=== PATIENT | female | born 1955 | race Caucasian/White ===

== ENCOUNTER 2017-07-05 04:27 | Observation (INO) ==
[2017-07-05] MEDS ORDERED: Aspirin 81 MG TAB.CHEW PO ONE (04:36)
[2017-07-05] MEDS: Nitroglycerin 0.4 MG TAB.SUBL SL ONE ×2 (04:41→05:04)
--- NOTE | 2017-07-05 04:42 | Emergency Department Note ---
Disposition Clinical Impression: Chest pain Qualifiers: Chest pain type: unspecified Qualified Code(s): R07.9 - Chest pain, unspecified Disposition: Admitted As Inpatient Condition: Good Referrals: Sarah Deng CNP [Primary Care Provider] - Forms: ED Satisfaction Letter Chest Pain HPI - General Chief Complaint: ED Chest Pain Stated Complaint: chest pain Time Seen by Provider: 07/05/17 04:36 Source: patient Mode of arrival: ambulatory Limitations: no limitations Vital Signs Reviewed: Yes Nursing Notes Reviewed: Yes - History of Present Illness HPI Narrative: Patient presents today for evaluation of chest pain pain in shoulder pain is worse with inspiration. Patient states that she has not had any symptoms until she awoke. She initially thought it might be gas. Patient's symptoms have progressed. Patient describes chest pain as sharp and worse with certain movements as well as deep breaths. Patient denies any trauma. Patient did have knee surgery in February has had intermittent associated issues with swelling in her legs. Patient is not on any anticoagulation. Severity scale (1-10): 5 - Related Data Allergies Allergy/AdvReac Type Severity Reaction Status Date / Time sumatriptan AdvReac Chest Pain Verified 07/05/17 04:38 Review of Systems: CONSTITUTIONAL: No weight loss, fever, chills, weakness or fatigue. HEENT: Eyes: No visual changes. Ears, Nose, Throat: No hearing loss, difficulty talking or unable to swallow. SKIN: No rash or itching. CARDIOVASCULAR: Chest pain with radiation to the neck and shoulder. RESPIRATORY: Shortness of breath without cough or sputum production GASTROINTESTINAL: No anorexia, nausea, vomiting or diarrhea. No abdominal pain or blood. GENITOURINARY: No burning on urination or hematuria. NEUROLOGICAL: No headache, dizziness, syncope, paralysis, ataxia, numbness or tingling in the extremities. No change in bowel or bladder control. MUSCULOSKELETAL: No muscle pain, back pain, joint pain or stiffness. Chest Pain PMH - Past Medical History Medical history: Reports: hypertension Surgical history: Reports: cholecystectomy, MALDONADO/BSO, other (Tonsillectomy; foot surgery) Psychiatric history: Reports: depression - Social History Smoking Status: Unknown if ever smoked Alcohol use: Reports: none Drug use: Reports: none Physical Exam General: Cachectic with short splinted breaths Head: Normocephalic Atraumatic Eyes: PERRL, EOMI ENT: Airway patent, no stridor Neck: supple, no meningismus Chest: Lungs clear to auscultation bilateral Cardiac: Regular rate and rhythm, no murmurs, rubs or gallops Abdomen: soft, nontender, nondistended; no guarding, rebound, or tenderness to percussion Musculoskeletal: Calves symmetric, nontender, no palpable cord Skin: No rash, normal skin tone Neuro: Alert and Oriented to person, place, and time; No focal deficit, CN 2-12 symmetric and intact - General General appearance: alert, in no apparent distress Course Course Narrative: Patient's d-dimer elevated. CTA negative. Patient's pain was worse with movement but was also improved with nitroglycerin. There has only been 3 hours of pain. Patient will need repeat troponins and further observation. Patient be admitted to the hospital service for further evaluation. - Consultations Consultation #1: Discussed with hospitalist. Patient accepted for admission. Vital Signs Temperature 98.1 F 07/05/17 04:28 Pulse Rate 96 07/05/17 04:28 Respiratory Rate 30 07/05/17 04:28 Blood Pressure 139/84 07/05/17 04:28 O2 Sat by Pulse Oximetry 96 07/05/17 04:28 Temperature 98.1 F 07/05/17 04:28 Pulse Rate 82 07/05/17 06:35 Respiratory Rate 18 07/05/17 06:35 Blood Pressure 141/83 07/05/17 06:35 O2 Sat by Pulse Oximetry 97 07/05/17 06:35 Oxygen Delivery Oxygen Delivery Nasal Cannula Chest Pain - Medical Records Medical records reviewed: Yes I reviewed the patient's medical records. - Lab Data Lab results reviewed: Yes I reviewed the patient's lab results. Result diagrams: 07/05/17 04:39 07/05/17 04:39 Lab Results 07/05/17 07/05/17 07/05/17 Range/Units 04:39 04:39 04:39 WBC 6.2 (4.3-11.1) K/mcL RBC 4.28 (3.82-4.97) M/mcL Hgb 13.2 (11.5-15.4) g/dL Hct 40.2 (35.3-44.9) % MCV 93.9 (83.0-100.0) fL MCH 30.8 (28.0-33.3) pg MCHC 32.8 (31.6-35.5) g/dL RDW 12.9 (11.5-14.5) % Plt Count 316 (140-400) K/mcL MPV 9.8 (9.4-12.4) fL Immature Gran % 0.2 (0-4) % Seg Neutrophils % 47.2 % Lymphocytes % 39.8 % Monocytes % 9.1 % Eosinophils % 3.2 % Basophils % 0.5 % Neutrophils # 2.9 (1.6-8.9) K/mcL Lymphocytes # 2.5 (0.6-4.6) K/mcL Monocytes # 0.6 (0.0-1.3) K/mcL Eosinophils # 0.2 (0.0-0.6) K/mcL Basophils # 0.0 (0.0-0.2) K/mcL Nucleated RBCs/100 WBC 0.5 H (0) /100 WBC PT 9.0 L (9.4-12.1) Seconds INR 0.8 APTT 29.1 (26.0-36.0) Seconds D-Dimer 905 H (0-500) ng/mLFEU Sodium (136-145) mEq/L Potassium (3.5-5.1) mEq/L Chloride (98-107) mEq/L Carbon Dioxide (23-29) mEq/L BUN (8-23) mg/dL Creatinine (0.60-1.20) mg/dL Est GFR ( Amer) (> 60) Est GFR (Non-Af Amer) (> 60) BUN/Creatinine Ratio (6-26) Glucose (70-105) mg/dL Calculated Osmolality (280-300) Calcium (8.6-10.3) mg/dL Troponin I (< 0.04) ng/mL B-Natriuretic Peptide 28 (Less than 100) pg/mL 07/05/17 Range/Units 04:39 WBC (4.3-11.1) K/mcL RBC (3.82-4.97) M/mcL Hgb (11.5-15.4) g/dL Hct (35.3-44.9) % MCV (83.0-100.0) fL MCH (28.0-33.3) pg MCHC (31.6-35.5) g/dL RDW (11.5-14.5) % Plt Count (140-400) K/mcL MPV (9.4-12.4) fL Immature Gran % (0-4) % Seg Neutrophils % % Lymphocytes % % Monocytes % % Eosinophils % % Basophils % % Neutrophils # (1.6-8.9) K/mcL Lymphocytes # (0.6-4.6) K/mcL Monocytes # (0.0-1.3) K/mcL Eosinophils # (0.0-0.6) K/mcL Basophils # (0.0-0.2) K/mcL Nucleated RBCs/100 WBC (0) /100 WBC PT (9.4-12.1) Seconds INR APTT (26.0-36.0) Seconds D-Dimer (0-500) ng/mLFEU Sodium 139 (136-145) mEq/L Potassium 4.2 (3.5-5.1) mEq/L Chloride 105 (98-107) mEq/L Carbon Dioxide 24 (23-29) mEq/L BUN 16 (8-23) mg/dL Creatinine 0.94 (0.60-1.20) mg/dL Est GFR ( Amer) > 60 (> 60) Est GFR (Non-Af Amer) > 60 (> 60) BUN/Creatinine Ratio 17 (6-26) Glucose 120 H (70-105) mg/dL Calculated Osmolality 290 (280-300) Calcium 9.1 (8.6-10.3) mg/dL Troponin I < 0.03 (< 0.04) ng/mL B-Natriuretic Peptide (Less than 100) pg/mL - Radiology Data Radiology results reviewed: Yes I reviewed the patient's radiology results. - EKG Data EKG attestation: Yes I reviewed and interpreted this EKG. EKG results narrative: EKG shows sinus rhythm with ventricular rate of 90. AK 152. QRS 82. QTC 391. Patient has no significant ST elevations or depressions. No previous EKG for comparison.
[2017-07-05] MEDS ORDERED: *HR* Morphine 2 MG/ML SYRINGE IVP ONE (04:46)
[2017-07-05] MEDS ORDERED: Ondansetron 4 MG/2 ML VIAL IVP ONE (04:46)
[2017-07-05 04:47] LABS: Basophils % 0.5 %; Eosinophils # 0.2 K/mcL (0.0-0.6); Eosinophils % 3.2 %; Hematocrit 40.2 % (35.3-44.9); Hemoglobin 13.2 g/dL (11.5-15.4); Immature Granulocytes % 0.2 % (0-4); Lymphocytes # 2.5 K/mcL (0.6-4.6); Lymphocytes % 39.8 %; Mean Corpuscular HGB Conc 32.8 g/dL (31.6-35.5); Mean Corpuscular Hemoglobin 30.8 pg (28.0-33.3); Mean Corpuscular Volume 93.9 fL (83.0-100.0); Mean Platelet Volume 9.8 fL (9.4-12.4); Monocytes # 0.6 K/mcL (0.0-1.3); Monocytes % 9.1 %; Neutrophils # 2.9 K/mcL (1.6-8.9); Nucleated Red Blood Cells 0.5 /100 WBC (0); Platelet Count 316 K/mcL (140-400); Red Blood Count 4.28 M/mcL (3.82-4.97); Red Cell Distribution Width 12.9 % (11.5-14.5); Segmented Neutrophils % 47.2 %
[2017-07-05 04:57] LABS: INR 0.8
[2017-07-05 05:00] LABS: Activated Partial Thrombo Time 29.1 Seconds (26.0-36.0)
[2017-07-05 05:15] LABS: BUN/Creatinine Ratio 17 (6-26); Blood Urea Nitrogen 16 mg/dL (8-23); Calcium 9.1 mg/dL (8.6-10.3); Carbon Dioxide 24 mEq/L (23-29); Chloride 105 mEq/L (98-107); Glucose 120 mg/dL (70-105); Osmolality,Calculated 290 (280-300); Potassium 4.2 mEq/L (3.5-5.1); Sodium 139 mEq/L (136-145); Troponin I < 0.03 ng/mL (< 0.04); eGFR For African Americans > 60 (> 60); eGFR For Non-African Americans > 60 (> 60)
[2017-07-05] MEDS ORDERED: Isovue-370 500 ML INFUS..BTL IV ONE (05:28)
--- NOTE | 2017-07-05 08:21 | Internal Med History&Physical ---
Date of Encounter: 07/05/17 Time of Encounter: 08:00 Internal Medicine - H&P: HPI Chief complaint: Chest pain Admitted From: Home History of present illness: Patient is a 61-year-old female with past medical history significant for hypertension, mood disorder and GERD who presents to the ER on 07/05/17 due to chest pain. Patient reports that she was awakened this morning with left-sided chest and shoulder pain which she describes as sharp. Patient reports that the discomfort is constant, made worse with deep inspiration and movement and better when she lies still. Patient denies any associated symptoms of shortness of breath, nausea/vomiting or diaphoresis. Patient was concerned and decided to come to the ER for evaluation. In the ER, EKG showed no ST or T-wave changes and first set of cardiac biomarkers are negative. CT of the chest was also negative for PE. Patient will be admitted to medical surgical floor for ACS rule out. Past Med Surg Social Fam HX - Past Medical History Medical history: hypertension Psychiatric history: depression - Past Surgical History Surgical History: cholecystectomy, MALDONADO/BSO, other - Social History Smoking Status: Never smoker Smokeless Tobacco Status: No Alcohol use: none Drug use: none - Family History Mother Hx Family Cardiac Disorders: Yes (Mother PR ) Internal Medicine - H&P: Meds Duloxetine HCl [Cymbalta] 60 mg PO BID 07/05/17 [History] Metoprolol Succinate [Toprol Xl] 50 mg PO DAILY 07/05/17 [History] Omeprazole [PriLOSEC] 20 mg PO BIDAC 07/05/17 [History] 3 Allergy/AdvReac Type Severity Reaction Status Date / Time sumatriptan AdvReac Chest Pain Verified 07/05/17 04:38 All Systems PM: A 10-system review of systems was performed and is negative for pertinent findings except as documented above in the HPI. - Constitutional Vitals: Temp Pulse Resp BP Pulse Ox 97.8 F 78 17 110/69 96 07/05/17 08:16 07/05/17 08:16 07/05/17 08:16 07/05/17 08:16 07/05/17 08:16 General appearance: Present: A&O X 3, no acute distress - Eye Eye exam: Present: normal appearance, PERRL, conjuntiva pink, sclera anicteric Pupils: Present: PERRL - ENT ENT exam: Present: mucous membranes moist - Respiratory Respiratory exam: Present: CTAB. Absent: accessory muscle use, rales, rhonchi, wheezes - Cardiovascular Cardiovascular exam: Present: RRR, +S1, +S2. Absent: diastolic murmur, gallop, rubs, systolic murmur - GI/Abdominal GI/Abdominal exam: Present: normal bowel sounds, soft, no peritoneal signs. Absent: distended, tenderness - Extremities Exam Extremities exam: Absent: pedal edema - Neurological Exam Neurological exam: Present: oriented X3 - Psychiatric Psychiatric exam: Present: normal mood - Skin Skin exam: Present: normal color Internal Med - H&P Results - Labs CBC & Chem 7: 07/05/17 04:39 07/05/17 04:39 - Assessment and plan (1) Chest pain Current Visit: Yes Status: Acute Assessment and plan: In the ER, EKG showed no ST or T-wave changes and first set of cardiac biomarkers are negative. CT of the chest was also negative for PE Will trend serial cardiac biomarkers, monitor on telemetry and order echocardiogram. Will also order nuclear medicine stress test Will await results before considering cardiology consult Qualifiers: Chest pain type: unspecified Qualified Code(s): R07.9 - Chest pain, unspecified (2) HTN (hypertension) Current Visit: Yes Status: Acute Assessment and plan: Blood pressures controlled; will hold beta ravindra pending degree medicine stress test Qualifiers: Hypertension type: essential hypertension Qualified Code(s): I10 - Essential (primary) hypertension (3) GERD (gastroesophageal reflux disease) Current Visit: Yes Status: Acute Assessment and plan: Continue home dose of PPI Qualifiers: Esophagitis presence: esophagitis presence not specified Qualified Code(s) : K21.9 - Gastro-esophageal reflux disease without esophagitis (4) DVT prophylaxis Current Visit: Yes Status: Acute Assessment and plan: Heparin subcutaneous - Time Spent With Patient Total time spent is greater than 50% in coordination of care (as documented) at patient's floor/unit and/or counseling patient:
[2017-07-05] MEDS ORDERED: Naloxone 0.4 MG/ML INJ IVP PRN (08:32)
[2017-07-05] MEDS ORDERED: Regadenoson 0.4 MG/5 ML SYRINGE IVP ONE (08:59)
[2017-07-05] MEDS: Ketorolac 30 MG/ML VIAL IVP PRN (14:45)
[2017-07-05] MEDS: *HR* Heparin 5,000 UNIT/ML VIAL SQ SCH ×2 (14:46→22:38)
--- NOTE | 2017-07-06 05:31 | Electrocardiograph Report ---
[place] [id number] Test Date: 2017-07-05 Pat Name: Mary Quan Department: 102 Room: 3B43 Gender: F Epic [employer] Analyst: Blaine : 1955 Requested By: [id number] Order Number: [id number] Reading MD: Antonio Neil Measurements Intervals [place] Rate: 90 P: 17 NM: 152 QRS: 8 QRSD: 82 T: 46 QT: 344 QTc: 391 Interpretive Statements SINUS RHYTHM Electronically Signed On 07-06-2017 5:30:09 EDT by Antonio Neil
[2017-07-06] MEDS: *HR* Heparin 5,000 UNIT/ML VIAL SQ SCH ×2 (05:53→13:05)
[2017-07-06 06:39] LABS: Basophils % 0.4 %; Eosinophils # 0.1 K/mcL (0.0-0.6); Eosinophils % 2.5 %; Hematocrit 38.8 % (35.3-44.9); Hemoglobin 12.3 g/dL (11.5-15.4); Immature Granulocytes % 0.2 % (0-4); Lymphocytes # 1.5 K/mcL (0.6-4.6); Lymphocytes % 26.7 %; Mean Corpuscular HGB Conc 31.7 g/dL (31.6-35.5); Mean Corpuscular Hemoglobin 29.6 pg (28.0-33.3); Mean Corpuscular Volume 93.3 fL (83.0-100.0); Monocytes # 0.5 K/mcL (0.0-1.3); Monocytes % 8.4 %; Neutrophils # 3.5 K/mcL (1.6-8.9); Platelet Count 283 K/mcL (140-400); Red Blood Count 4.16 M/mcL (3.82-4.97); Red Cell Distribution Width 12.9 % (11.5-14.5); Segmented Neutrophils % 61.8 %
[2017-07-06 06:54] LABS: BUN/Creatinine Ratio 21 (6-26); Blood Urea Nitrogen 18 mg/dL (8-23); Calcium 9.1 mg/dL (8.6-10.3); Carbon Dioxide 24 mEq/L (23-29); Chloride 103 mEq/L (98-107); Glucose 112 mg/dL (70-105); Osmolality,Calculated 289 (280-300); Potassium 4.4 mEq/L (3.5-5.1); Sodium 138 mEq/L (136-145); eGFR For African Americans > 60 (> 60); eGFR For Non-African Americans > 60 (> 60)
[2017-07-06] MEDS: Ketorolac 30 MG/ML VIAL IVP PRN (10:10)
--- NOTE | 2017-07-06 10:31 | Cardiology Consult Note ---
Date of Encounter: 07/06/17 Time of Encounter: 10:30 Assessment and Plan (1) Abnormal stress test Current Visit: Yes Status: Acute Discussed her symptoms consistent with noncardiac chest pain, most likely pleurisy or musculoskeletal. She walks at home without symptoms. Sxs improved with toradol. No high risk findings on stress test. A/R/B of medical management versus LHC discussed with her including 1% chance of IA//CVA/ CABG/bleeding in the latter. She is agreeable with conservative management which I feel is reasonable as she has BMI 46 with large breast size making it more likely the anterior defect on stress is artifactual. Stable for dc, and fu in clinic. (2) Chest pain Current Visit: Yes Status: Acute agree with nsaid for pleurisy, aspirin 81mg daily Qualifiers: Chest pain type: unspecified Qualified Code(s): R07.9 - Chest pain, unspecified Discussion w patient/family: The assessment and plan as outlined above was discussed with the patient and/or family members who expressed understanding and agreement. All questions were answered. Thank you for involving us in the care of your patient. Please call with any questions. History of Present Illness Consult date: 07/06/17 Consult reason: chest pain Chief complaint: chest pain History of present illness: Ms. Quan is a 61 year old female with no previous cardiac history. She presents with chest pain described as under left breast into left shoulder that is sharp and worse with deep inspiration and moving her upper body and notes worse on palpation as well. It was severe initially and now moderate, improved after toradol given. She denies dyspnea, nausea, diaphoresis or vomiting. Past Med Surg Social Fam HX - Past Medical History Medical history: hypertension Psychiatric history: depression - Past Surgical History Surgical History: cholecystectomy, MALDONADO/BSO, other - Social History Smoking Status: Never smoker Smokeless Tobacco Status: No Alcohol use: none Drug use: none - Family History Mother Hx Family Cardiac Disorders: Yes (IA, pacer) Medications and Allergies Duloxetine HCl [Cymbalta] 60 mg PO BID 07/05/17 [History] Metoprolol Succinate [Toprol Xl] 50 mg PO DAILY 07/05/17 [History] Omeprazole [PriLOSEC] 20 mg PO BIDAC 07/05/17 [History] 3 Allergy/AdvReac Type Severity Reaction Status Date / Time sumatriptan AdvReac Chest Pain Verified 07/05/17 04:38 All Systems Review: The remainder of the systems were reviewed and are negative - Constitutional Constitutional: no chills, no fever(s) - EENT Nose, mouth and throat: no bleeding gums, no epistaxis - Cardiovascular Cardiovascular: chest pain at rest, chest pain with exertion - Respiratory Respiratory: no hemoptysis, no wheezing - Gastrointestinal Gastrointestinal: no hematemesis, no hematochezia - Genitourinary Genitourinary: no hematuria, no nocturia - Musculoskeletal Musculoskeletal: no muscle cramps, no muscle weakness - Integumentary Integumentary: no rash, no unusual bruising - Neurological Neurological: no syncope, no tingling - Psychiatric Psychiatric: no hallucinations, no panic attacks - Hematological/Lymphatic Hematologic/Lymphatic: no easy bleeding, no easy bruising Physical Examination Vital Signs, Last 4 Hours Temp Pulse Resp BP Pulse Ox 07/06/17 08:20 92 07/06/17 07:10 98.6 F 80 16 119/78 92 General: Conversant HEENT: Atraumatic Neck: No JVD Cardiac: Reg Rate and Rhythm Lungs: Normal Breath Sounds Neuro: Alert and responsive Abdomen: Soft Skin: No rashes noted on visualized skin Musculoskeletal: No Chest Wall Tenderness Extremities: No Edema Other: obese, larger chest size Results 07/06/17 04:00 07/06/17 04:00 Lab Results 07/05/17 07/05/17 07/05/17 10:33 16:13 23:16 WBC Hgb Hct Plt Count Sodium Potassium Chloride Carbon Dioxide BUN Creatinine Glucose Calcium Troponin I < 0.03 < 0.03 < 0.03 07/06/17 07/06/17 04:00 04:00 WBC 5.6 Hgb 12.3 Hct 38.8 Plt Count 283 Sodium 138 Potassium 4.4 Chloride 103 Carbon Dioxide 24 BUN 18 Creatinine 0.85 Glucose 112 H Calcium 9.1 Troponin I - EKG Interpretation EKG results cardiology: sinus rhythm, no diagnostic ischemia Consult Discharge Plan - Plan Referrals: Sarah Deng CNP [Primary Care Provider] - 07/10/17 10:35 am
[2017-07-06 15:06] VITALS: BP 106/70
--- NOTE | 2017-07-06 15:10 | Discharge Summary ---
- NOTES TO OUTPATIENT PROVIDER Notes to Outpatient Provider: Pt was admitted for chest pain, likely musculoskeletal. Pt had stress test that showed positive results, she was cleared by cardiology. Pain was reproducible with movement, deep inspiration, as well as palpation. She denies known injury and there is no sign of injury. Pt has been given lidoderm patches, NSAID, and incentive spirometry for discharge. Orders not resulted at time of discharge: Pending orders 07/05/17 08:38 NM lorenzo perf SPECT multi [NM] Routine Date of Encounter: 07/06/17 Time of Encounter: 09:50 - Discharge Diagnosis (1) Chest pain Priority: Primary Status: Acute Assessment and Plan: Chest pain likely musculoskeletal. Patient denies known injury, change in routine. There is no obvious sign of injury. Left lateral ribs tender to palpation, pain increases with inspiration and movement. Patient denies recent change in routine or falls. Chest x-ray showed airway thickening. Talked mild interstitial edema and a suspected small left effusion. Chest CTA shows no other evidence of pulmonary embolism and there is atelectatic changes in pleuroparenchymal thickening in the lung bases. Recommend follow-up with pulmonology and primary care. EKG on admission showed sinus rhythm with a rate of 90, VT interval 152, QRS 82 , QTC 344/QTC 391. Echocardiogram showed an LVEF of 55-60% with mild LV DD, no significant valvular dysfunction. Cardiac stress test showed a small sized, mild to moderate intensity stress perfusion defect involving the distal anterior wall and anterior septum representing reversible ischemia. Pharmacologic stress ECG is negative for ischemia gated EF of greater than 70%. Patient was evaluated by cardiology. They are in agreement that the pain is most likely pleurisy or musculoskeletal chest pain. D discussed medical management versus HC and she is agreeable with conservative management. There is a chance that due to her BMI of 46 with large breast size, the anterior defect on stress is due to artifact. Patient is stable and appropriate for discharge and will follow up with cardiology in the clinic. Chest pain improved with NSAID and Lidoderm patch. Patient will have incentive spirometry prior to discharge. Use at home. Qualifiers: Chest pain type: unspecified Qualified Code(s): R07.9 - Chest pain, unspecified (2) HTN (hypertension) Priority: Secondary Status: Acute Assessment and Plan: Chronic. Well controlled. Continue home medications. Qualifiers: Hypertension type: essential hypertension Qualified Code(s): I10 - Essential (primary) hypertension (3) GERD (gastroesophageal reflux disease) Priority: Secondary Status: Chronic Assessment and Plan: Chronic. Continue home dose of medications. Pt denies change or increase in symptoms. Qualifiers: Esophagitis presence: esophagitis presence not specified Qualified Code(s) : K21.9 - Gastro-esophageal reflux disease without esophagitis (4) DVT prophylaxis Priority: Secondary Status: Acute Assessment and Plan: Heparin SQ BID. Hospital course: Ms. Quan is a 61 year old female - Time Spent with Patient Total time spent providing and/or coordinating discharge services: - Discharge Medications Prescriptions: Lidocaine Patch [Lidoderm 5% patch] 1 each TP DAILY #14 adh..patch Tramadol HCl [Ultram] 50 mg PO BID PRN 5 Days #10 tab PRN Reason: Pain Home Medications: Duloxetine HCl [Cymbalta] 60 mg PO BID 07/05/17 [History] Metoprolol Succinate [Toprol Xl] 50 mg PO DAILY 07/05/17 [History] Omeprazole [PriLOSEC] 20 mg PO BIDAC 07/05/17 [History] Lidocaine Patch [Lidoderm 5% patch] 1 each TP DAILY #14 adh..patch 07/06/17 [Rx] Tramadol HCl [Ultram] 50 mg PO BID PRN 5 Days #10 tab 07/06/17 [Rx] Allergies/Adverse Reactions: 3 Allergy/AdvReac Type Severity Reaction Status Date / Time sumatriptan AdvReac Chest Pain Verified 07/05/17 04:38 Date of admission: 07/05/17 07:01 Primary care physician: Sarah Deng CNP Discharging clinician: Cary Barr Anticipated date of discharge: 07/06/17 - Constitutional Vitals: Temp Pulse Resp BP Pulse Ox 98.5 F 96 17 106/70 95 07/06/17 15:04 07/06/17 15:04 07/06/17 15:04 07/06/17 15:04 07/06/17 15:04 General appearance: Present: cooperative, mild distress, A&O X 3, answers questions appropriately - Head Head exam: Present: atraumatic, normal inspection, normocephalic - Eye Eye exam: Present: normal appearance, conjuntiva pink, sclera anicteric - Neck Neck exam general surgery: Present: supple, trachea midline. Absent: lymphadenopathy - Respiratory Respiratory exam: Present: chest wall tenderness, decreased breath sounds, CTAB. Absent: accessory muscle use, prolonged expiratory phase, rales, rhonchi , wheezes - Cardiovascular Cardiovascular exam: Present: RRR, +S1, +S2. Absent: diastolic murmur, gallop, rubs, systolic murmur - GI/Abdominal GI/Abdominal exam: Present: normal bowel sounds, soft. Absent: distended, hepatomegaly, tenderness - Extremities Exam Extremities exam: Present: normal capillary refill, normal inspection, warm, radial pulses palpable and symmetrical. Absent: calf tenderness, cyanotic, pedal edema, tenderness - Neurological Exam Neurological exam: Present: alert, oriented X3, no focal deficits. Absent: facial droop, speech deficit - Skin Skin exam: Present: dry, intact, normal color, warm. Absent: rash - Patient Status Disposition: Home, Self-Care Condition: Good Functional capacity at discharge: independent ambulation Overall status at discharge: patient is progressing back to baseline - Discharge Instructions Follow Up With: Sarah Deng CNP [Primary Care Provider] - 07/10/17 10:35 am Additional Instructions: Please follow up with Brooke Deng as scheduled on 07/10 as scheduled. Follow with cardiology as scheduled in their office. Take your medications as directed. Return to the ER as needed for any other problems or concerns, or if your symptoms return or worsen. Use your incentive spirometry at least six times per hour while you are awake. Return to your normal diet and exercise as tolerated. - Diet and Activity Activity: increase activity as tolerated Diet: advance to your usual diet
== END 2017-07-06 17:43 | disposition home or self-care (01) ==
LOC: 3BNU 04:27 → EMEROO 04:27 → 3BNU 07:48
PROVIDERS: ADMIT Internal Medicine; ATTEND Internal Medicine